=== PATIENT | male | born 1975 | race Caucasian/White ===

== ENCOUNTER 2024-06-10 11:29 | Emergency (ER) | payer OTHER ==
[~2024-06-10] VITALS: Ht 180.3 cm; Wt 93.2 kg
[2024-06-10 11:36] VITALS: BP 127/78; PULSE 91; RESP 16; TEMP 98.1; O2SAT 98
[2024-06-10] MEDS ORDERED: DOLU1TAB2 PO (11:43)
[2024-06-10] MEDS ORDERED: ROSU10TA72 PO (11:43)
[2024-06-10] MEDS ORDERED: PRAZ5 PO (11:43)
[2024-06-10] MEDS ORDERED: BUSP15 PO (11:43)
[2024-06-10] MEDS ORDERED: TRAZ150T80 PO (11:43)
[2024-06-10] MEDS ORDERED: BUPR-514 PO (11:43)
[2024-06-10] MEDS ORDERED: TOPI-258 PO (11:43)
[2024-06-10] MEDS ORDERED: FAMO20 PO (11:43)
[2024-06-10] MEDS ORDERED: PANT-31 PO (11:43)
[2024-06-10] MEDS ORDERED: LAMO-24 PO (11:43)
[2024-06-10 15:16] LABS: BASOPHILS % (AUTO) 0.8 % (0.0-2.0); EOSINOPHILS % (AUTO) 1.8 % (1.0-6.0); HEMATOCRIT 51.1 % (41-53); HEMOGLOBIN 17.1 g/dL (13.5-17.5); LYMPHOCYTES # (AUTO) 2.7 K/uL (1.0-4.8); LYMPHOCYTES % (AUTO) 29.3 % (22.0-44.0); MEAN CORPUSCULAR HEMOGLOBIN 32.5 pg (26.0-34.0); MEAN CORPUSCULAR HGB CONC 33.5 G/dL (31.0-37.0); MEAN CORPUSCULAR VOLUME 97 fL (80-100); MONOCYTES # (AUTO) 0.6 K/uL (0.1-1.0); MONOCYTES % (AUTO) 6.3 % (2.0-9.0); NEUTROPHILS # (AUTO) 5.8 K/uL (1.8-7.7); NEUTROPHILS % (AUTO) 61.8 % (40.0-70.0); PLATELET COUNT (AUTO) 160 K/uL (150-450); RED BLOOD CELL COUNT(AUTO) 5.27 MIL/uL (4.50-5.90); RED CELL DISTRIBUTION WIDTH 12.9 % (11.5-14.5); WHITE BLOOD COUNT (AUTO) 9.4 K/uL (4.5-11.0)
[2024-06-10 15:23] LABS: ANION GAP 7 mmol/L (8-16); CALCIUM, TOTAL 8.9 mg/dL (8.8-10.5); CARBON DIOXIDE 26 mmol/L (22-29); CHLORIDE 106 mmol/L (98-107); CREATININE 1.29 mg/dL (0.60-1.30); GLOMERULAR FILTR. RATE CALC 60 mL/min (>60); GLUCOSE,RANDOM 81 mg/dL (70-110); POTASSIUM 4.2 mmol/L (3.5-5.1); SODIUM SERUM 139 mmol/L (136-145); UREA NITROGEN, BLOOD 12 mg/dL (7-18)
[2024-06-10 15:49] LABS: ALCOHOL, BLOOD (SERUM) < 3 mg/dL (0-10)
[2024-06-10 15:52] LABS: COVID AG,FIA SOURCE NASAL SWAB
[2024-06-10 16:16] LABS: SARS-COV2 (COVID) ANTIGEN,FIA Negative (Negative)
== END 2024-06-10 16:43 | disposition home or self-care (01) ==
LOC: EMS 11:29
DX: R44.1 Visual hallucinations (principal); E78.00 Pure hypercholesterolemia, unspecified; G43.909 Migraine, unspecified, not intractable, without status migrainosus; F32.A Depression, unspecified; Z90.49 Acquired absence of other specified parts of digestive tract; Z20.822 Contact with and (suspected) exposure to COVID-19; Z51.81 Encounter for therapeutic drug level monitoring; Z76.0 Encounter for issue of repeat prescription; Z79.624 Long term (current) use of inhibitors of nucleotide synthesis; Z79.899 Other long term (current) drug therapy; Z88.0 Allergy status to penicillin; Z88.2 Allergy status to sulfonamides
CPT/HCPCS: 99283; 87426; 80048; 85025; 36415; G0480